=== PATIENT | female | born 1955 | race Hispanic/Latino ===

== ENCOUNTER 2019-05-10 10:41 | Emergency (ER) | payer OTHER ==
[~2019-05-10 10:41] MED LIST: ALBU18HF7 IH; ASPI81TA40 PO; CETI10TA57 PO; LISI10TA7 PO; METF500T7 PO; NAPR250T4 PO; RANI300T4 PO
[2019-05-10 10:58] LABS: APPEARANCE,URINE CLEAR (CLEAR); BILIRUBIN,URINE NEGATIVE (NEGATIVE); COLOR,URINE YELLOW (YELLOW); GLUCOSE, URINE (UA) NEGATIVE (NEGATIVE); KETONES,URINE NEGATIVE (NEGATIVE); LEUKOCYTE ESTERASE ,URINE MODERATE (NEGATIVE); NITRATE,URINE NEGATIVE (NEGATIVE); OCCULT BLOOD,URINE TRACE-LYSED (NEGATIVE); PH,URINE 5.5 (5.0-8.0); PROTEIN,URINE NEGATIVE (NEGATIVE); UROBILINOGEN,URINE 0.2 mg/dL (0.2-1.0)
[2019-05-10] MEDS ORDERED: ONDANSETRON HCL 4 MG/2 ML VIAL ONE (11:03)
[2019-05-10] MEDS ORDERED: SODIUM CHLORIDE 0.9% 1000ML 1,000 ML IV ONE (11:03)
[2019-05-10] MEDS ORDERED: MORPHINE SULFATE 4 MG/1ML SYG ONE (11:03)
[2019-05-10 11:04] LABS: BACTERIA,URINE Moderate /HPF (None Seen); RBC,URINE 0-1 /HPF (0-1); SQUAMOUS EPITHELIAL CELL,UR Few /HPF (0-2)
[2019-05-10 11:23] LABS: CREATININE 0.7 mg/dL (0.5-1.5); POTASSIUM 4.1 mmol/L (3.5-5.1)
[2019-05-10 11:42] LABS: ALBUMIN 3.7 g/dL (3.5-5.0); BILIRUBIN,TOTAL 0.3 mg/dL (0.2-1.0); TOTAL PROTEIN, SERUM 8.4 g/dL (6.0-8.3)
[2019-05-10 11:44] LABS: INR 0.94 (0.85-1.15); PARTIAL THROMBOPLASTIN TIME 29.8 SEC (26.3-35.5); PROTHROMBIN TIME 9.9 SEC (9.6-11.6)
[2019-05-10] MEDS ORDERED: CEFTRIAXONE SODIUM 2 GM VIAL ONE (12:28)
[2019-05-10] MEDS ORDERED: SODIUM CHLORIDE 0.9% 100 ML IV ONE (12:30)
[2019-05-10] MEDS ORDERED: IOHEXOL-350 75 ML VIAL IV ONE (12:39)
== END 2019-05-10 14:08 | disposition home or self-care (01) ==
LOC: EDH 10:41
DX: N39.0 Urinary tract infection, site not specified (principal); R03.0 Elevated blood-pressure reading, without diagnosis of hypertension; R10.13 Epigastric pain; Z90.49 Acquired absence of other specified parts of digestive tract
CPT/HCPCS: 36415; 71045; 74177; 80053; 81001; 82150; 82550; 83690; 83874; 83880; 84484; 85610; 85730; 87088; 93005; 96374; 96375; 99285; J0696; J2270; J2405; J7030; Q9967

== ENCOUNTER 2025-09-16 18:25 | Emergency (ER) | payer MEDICARE ==
[~2025-09-16] VITALS: Ht 157.5 cm; Wt 86.2 kg
[~2025-09-16 18:25] MED LIST changes: +LISI10TA24 PO; -LISI10TA7 PO; +METF-910 PO; -METF500T7 PO; +NAPR-1196 PO; -NAPR250T4 PO
[2025-09-16 18:27] VITALS: BP 165/73; PULSE 79; RESP 20; TEMP 98.2
--- NOTE | 2025-09-16 18:33 | ERN ---
ED Note History of Present Illness Stated Complaint: LT ARM PAIN Chief Complaint: Upper Extremity Pain/Injury Time Seen by MD: 18:28 Dictation: IS A 70-YEAR-OLD FEMALE HERE WITH COMPLAINTS OF NON TRAUMA RIGHT SHOULDER PAIN DIFFUSELY ONSET THIS MORNING. SHE SAID SHE HAS A HISTORY OF ARTHRITIS. SHE HAS NOT HAD ANY TRAUMA OR FALLS NO PRIOR SURGERIES TO THE SHOULDER. SHE TOOK TYLENOL ONLY THIS MORNING FOR PAIN. Allergies: Coded Allergies: No Known Drug Allergies (Unverified Allergy, Unknown, 08/11/17) Home Meds Active Scripts Cetirizine HCl (Cetirizine HCl) 10 Mg Tablet, 10 MG PO HS, #30 TAB 3 Refills Prov:REMIGIO COPELAND MD 08/12/17 Albuterol Sulfate (Ventolin Hfa) 18 Gm Hfa.aer.ad, 2 PUFF IH TIDP PRN for SHORTNESS OF BREATH, #1 INHALER Prov:REMIGIO COPELAND MD 08/12/17 Aspirin (Aspir-Low) 81 Mg Tablet.dr, 81 MG PO DAILYBKFST, #300 TAB Prov:REMIGIO COPELAND MD 08/12/17 Lisinopril (Lisinopril) 10 Mg Tablet, 10 MG PO DAILY, #30 TAB 3 Refills Prov:REMIGIO COPELAND MD 08/12/17 Ranitidine HCl (Ranitidine HCl) 300 Mg Tablet, 300 MG PO DAILY, #30 TAB 12 Refills Prov:REMIGIO COPELAND MD 08/12/17 Naproxen (Naproxen) 250 Mg Tablet, 250 MG PO [id number] PRN for JOINT PAIN, #60 TAB Prov:REMIGIO COPELAND MD 08/12/17 Metformin HCl (Metformin HCl ER) 500 Mg Tab.er.24h, 500 MG PO BIDMEALS, #60 TAB 12 Refills Prov:REMIGIO COPELAND MD 08/12/17 Past Medical History Past Medical History: Anxiety, Arthritis, Diabetes-Type II, High Cholesterol, Hypertension Surgical History: Other History: Not Applicable RN Note Reviewed/Agreed w/PFSH: Yes Review of System Dictation CONSTITUTIONAL: NEGATIVE EXCEPT FOR HPI HEAD/FACE: NEGATIVE EXCEPT FOR HPI EENT: NEGATIVE EXCEPT FOR HPI RESPIRATORY: NEGATIVE EXCEPT FOR HPI GASTROINTESTINAL/ABDOMINAL: NEGATIVE EXCEPT FOR HPI GENITOURINARY: NEGATIVE EXCEPT FOR HPI MUSCULOSKELETAL: NEGATIVE EXCEPT FOR HPI LEFT SHOULDER PAIN/NON TRAUMA INTEGUMENTARY: NEGATIVE EXCEPT FOR HPI NEUROLOGICAL/PSYCH: NEGATIVE EXCEPT FOR HPI HEMATOLOGIC/LYMPHATIC: NEGATIVE EXCEPT FOR HPI ALL SYSTEMS NEGATIVE, EXCEPT NOTED ABOVE. 13 POINT REVIEW OF SYSTEMS ASSESSED AND ALL NEGATIVE EXCEPT FOR ABOVE. Initial Vital Sign VS Vital Signs Date Time Temp Pulse Resp B/P (MAP) Pulse Ox O2 Delivery O2 Flow Rate FiO2 09/16/25 18:27 98.2 79 20 165/73 95 Room Air 0 Physical Exam Dictation VITAL SIGNS REVIEWED MODERATE ACUTE DISTRESS, WELL DEVELOPED, NOURISHED. OBESE HEAD AND FACE: NON-TRAUMATIC. EYES: PERRL, PINK CONJUNCTIVAS, EYELID NO TRAUMA, ANTERIOR CHAMBER WITH ARCUS SENILIS. EARS: PINNAS INTACT AND NO SIGNS OF TRAUMA OR ERYTHEMA EAR CANALS CLEAR AND NO DISCHARGE TM NO ERYTHEMA NOSE: NO DISCHARGE, NO BLEEDING. OROPHARYNX: MOUTH NORMAL, TONGUE PINK, PHARYNX CLEAR,NO ERYTHEMA, TONSILS NO EXUDATES, NO ABSCESSES NOTED, MUCOUS MEMBRANE MOIST NECK: SUPPLE, NON-TENDER, NO THYROMEGALY, NO MASSES, NO JVD, NO BRUITS BREAST:DEFERRED CHEST:NO TENDERNESS, NO CREPITUS, NO PARADOXICAL MOVEMENT, NO RETRACTIONS LUNGS:CLEAR, WELL-VENTILATED, SYMMETRIC, NO RALES, NO WHEEZING, NO RHONCHI, NO STRIDOR, GOOD BREATH SOUNDS BILATERALLY HEART: REGULAR RATE, REGULAR RHYTHM, NO MURMUR, NO GALLOPS VASCULAR: NO PERIPHERAL EDEMA, ABDOMEN: SOFT, POSITIVE BOWEL SOUNDS, NONDISTENDED, NO GUARDING, MUSCULOSKELETAL/EXQUISITE TENDERNESS TO LEFT SHOULDER WITH NO ERYTHEMA. MOTION SECONDARY TO PAIN SKIN: COLOR PINK, DRY, NO TURGOR, NO RASH, NO LACERATIONS, NO ABRASIONS, NO CONTUSIONS. LYMPHATIC: DEFERRED Results (Laboratory/Radiology) Laboratory/Radiology Signed PATIENT: JOHNNY ROWE MR#: [id number] : 1955 SEX: F AGE: 70 LOCATION: [facility] ORDER 31 STATUS: REG REPORT#: [id number] SERVICE 29 REASON: NON TRAUMA LEFT SHOULDER PAIN ONE DAY. 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 CLINICAL HISTORY: NON TRAUMA LEFT SHOULDER PAIN ONE DAY. HISTORY OF ARTHRITIS COMPARISON: None provided. FINDINGS: BONES: Small calcific density adjacent to humeral head consistent with calcific tendinitis. No fractures. JOINTS: Mild inferior subluxation of the humeral head may be related to a joint effusion. Correlate clinically. SOFT TISSUES: The soft tissues are unremarkable. IMPRESSION: 1. Calcific tendinitis of the right shoulder. 2. Mild inferior subluxation of the humeral head, possibly due to joint effusion. /[place] [facility] Reviewed?: Yes ED Course ED Course Orders Procedure Category Date Status Time Shoulder Comp 2+Vws Lt RAD 09/16/25 Resulted 18:30 Acetaminophen With PHA 09/16/25 Complete Codeine (Tylenol-Code 18:30 Dexamethasone 4mg/Ml PHA 09/16/25 Complete 1ml Vial (Dexametha 18:30 12 Lead Ekg Tracing- EKG 09/16/25 Logged Technical 18:32 Current Medications Medications (Trade) Dose Ordered Sig/Jin Route PRN Reason Start Time Stop Time Status Last Admin Dose Admin Acetaminophen/ Codeine Phosphate (TYLenol-coDEINE TAB) 2 tab ONCE ONCE PO 09/16/25 18:30 09/16/25 18:33 DC 09/16/25 19:39 Dexamethasone Sodium Phosphate (dexaMETHasone 4MG/ML 1ML VIAL) 8 mg ONCE ONCE IM 09/16/25 18:30 09/16/25 18:33 DC 09/16/25 19:39 Vital Signs Date Time Temp Pulse Resp B/P (MAP) Pulse Ox O2 Delivery O2 Flow Rate FiO2 09/16/25 18:27 98.2 79 20 165/73 95 Room Air 0 Medical Decision Making MDM 1950/MEDICAL DISCHARGE MAKING BASED ON EMPIRIC TREATMENT OF PAIN AND X-RAY OF LEFT SHOULDER PATIENT HAS A CALCIFIC TENDONITIS WE WILL BE DISCHARGED HOME WITH TYLENOL WITH CODEINE SLING PATIENT TOLD TO FOLLOW UP WITH NEXT WEEK AND CALL FOR AN APPOINTMENT DX & DISP Disposition: Discharge Departure Impression: Primary Impression: Calcific tendinitis of left shoulder Condition: Stable Scripts Acetaminophen with Codeine (Acetaminophen-Cod #3 Tablet) 300 Mg-30 Mg Tablet 1 TAB PO Q6H PRN for MODERATE TO SEVERE PAIN, #15 TAB 0 Refills Prov: IMER WAGGONER 09/16/25 Additional Instructions: Follow-up with primary care provider in 1 to 2 days. Take medications as directed here in the emergency room. Okay to continue home medications unless otherwise discussed during your visit in the emergency room today. Return to your nearest emergency room if symptoms worsen or if there is no improvement. Call 911 if you need immediate assistance. Take Tylenol or Motrin [id number] as needed and if no contraindications are present. Increase oral hydration. A wound culture or urine culture was ordered here in the emergency room department please follow-up with primary care provider and advise them to get repeat ports from our facility. If you had any Samir wrap/splints that were applied here, please do not remove them until you see your primary care or specialty. Take Tylenol with codeine as needed for severe pain. Call orthopedic surgeon for an appointment in the next 1-2 days for management Sling and no weight-bearing to your left arm until cleared by Orthopedics. Referrals: SELF,REFERRAL (PCP) JEFFERSON IBARRA MD Time of Disposition: 19:51 I have reviewed the case, and I agree with, Diagnosis and Plan IMER WAGGONER Sep 16, 2025 18:33
--- NOTE | 2025-09-16 19:34 | HMCIMG ---
EXAM: CR right Shoulder, 2 View. CLINICAL HISTORY: NON TRAUMA LEFT SHOULDER PAIN ONE DAY. HISTORY OF ARTHRITIS COMPARISON: None provided. FINDINGS: BONES: Small calcific density adjacent to humeral head consistent with calcific tendinitis. No fractures. JOINTS: Mild inferior subluxation of the humeral head may be related to a joint effusion. Correlate clinically. SOFT TISSUES: The soft tissues are unremarkable. IMPRESSION: 1. Calcific tendinitis of the right shoulder. 2. Mild inferior subluxation of the humeral head, possibly due to joint effusion. /[place]
[2025-09-16] MEDS ORDERED: ACET-2079 PO (19:55)
--- NOTE | 2025-09-18 12:07 | EKG ---
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
== END 2025-09-16 20:03 | disposition home or self-care (01) ==
LOC: EDH 18:25
DX: M75.32 Calcific tendinitis of left shoulder (principal); E11.9 Type 2 diabetes mellitus without complications; E78.00 Pure hypercholesterolemia, unspecified; I10 Essential (primary) hypertension; Z79.899 Other long term (current) drug therapy
CPT/HCPCS: 99283; 73030; 96372; 93005; J1100